=== PATIENT | female | born 1980 | race Caucasian/White ===

== ENCOUNTER → 2021-04-07 13:56 | Outpatient (REF) | payer OTHER, SELFPAY | LOC: ANHLAB 13:56 | PROVIDERS: PCP Family Medicine; Visit Provider Nurse Practitioner | DX: L72.11 Pilar cyst (principal) | CPT/HCPCS: 88304 ==

== ENCOUNTER → 2021-04-17 15:45 | Outpatient (REF) | payer OTHER, SELFPAY | LOC: ANHLAB 15:45 | PROVIDERS: PCP Family Medicine; Visit Provider Nurse Practitioner | DX: L72.11 Pilar cyst (principal) | CPT/HCPCS: 88304 ==

== ENCOUNTER → 2023-05-19 16:18 | Outpatient (CLI) | payer OTHER, SELFPAY ==
--- NOTE | ~2023-05-19 | MM_ITS ---
EXAMINATION: MM screening [facility] w [place] HISTORY: Screening mammogram, family history of breast cancer in her mother. TECHNIQUE: Craniocaudal and mediolateral oblique 3-D tomosynthesis images were obtained and synthetic 2-D images were generated. CAD analysis was submitted and interpreted. COMPARISON: None, baseline BREAST PARENCHYMAL COMPOSITION: The breasts are heterogeneously dense, which may obscure small masses . FINDINGS: No suspicious mass, calcification, or architectural distortion are identified in either mayra ast to suggest malignancy. IMPRESSION: 1. No mammographic evidence of malignancy. 2. Recommend routine screening mammography in one year. BI-RADS Category 1: Negative Reviewed, dictated and finalized at location A.
== END ==
PROVIDERS: PCP Family Medicine; Visit Provider Family Medicine
DX: Z12.31 Encounter for screening mammogram for malignant neoplasm of breast (principal)
CPT/HCPCS: 77063; 77067